=== PATIENT | female | born 1985 | race American Indian/Alaskan Native ===

== ENCOUNTER 2018-10-14 16:57 | Inpatient (IN) | payer MEDICAID ==
[2018-10-14 18:57] LABS: HCG Qualitative,Urine Negative (Negative)
[2018-10-14 18:59] LABS: Bilirubin,Urine NEG (Negative); Blood,Urine NEG (Negative); Color,Urine Yellow (Yellow); Mucus,Urine 3+ /HPF; Protein,Urine <15 mg/dL mg/dL (Negative)
[2018-10-14 19:00] LABS: Urobilinogen,Urine < 2.0 mg/dL (<2.0)
[2018-10-14] MEDS ORDERED: NACL 0.9% 1000 ML 1,000 ML IV ONE (21:52)
[2018-10-14] MEDS ORDERED: DILAUDID IV ONE (21:52)
--- NOTE | 2018-10-14 22:01 | Emergency Department Report ---
ED Abdominal Pain HPI - General Chief Complaint: Abdominal Pain Stated Complaint: CHEST/ABD/BACK PAIN Time Seen by Provider: 10/14/18 21:51 Source: patient Mode of arrival: Ambulatory Limitations: No Limitations - History of Present Illness Initial Comments: Patient is a 33-year-old female who presents to emergency room with complaints of chest pain 1 day and abdominal pain and lower back pain 3 weeks. Patient states that her back pain and abdominal pain are worsening. Patient states her chest pain is better with rest and worse with deep breath. Patient denies fever and chills and cough. Patient states her abdominal pain is right lower quadrant and is better with rest and is worse with palpation and movement. Patient denies nausea vomiting. Patient denies vaginal discharge. Patient denies vaginal bleeding. Patient complains of diarrhea. MD Complaint: abdominal pain -: Sudden - Related Data Allergies Allergy/AdvReac Type Severity Reaction Status Date / Time No Known Allergies Allergy Verified 10/14/18 17:24 ED Review of Systems ROS: Stated complaint: CHEST/ABD/BACK PAIN Other details as noted in HPI Constitutional: denies: chills, fever Eyes: denies: eye pain, eye discharge, vision change ENT: denies: ear pain, throat pain Respiratory: denies: cough, shortness of breath, wheezing Cardiovascular: chest pain. denies: palpitations Endocrine: no symptoms reported Gastrointestinal: abdominal pain. denies: nausea, diarrhea Genitourinary: denies: urgency, dysuria, discharge Musculoskeletal: denies: back pain, joint swelling, arthralgia Skin: denies: rash, lesions Neurological: denies: headache, weakness, paresthesias Psychiatric: denies: anxiety, depression Hematological/Lymphatic: denies: easy bleeding, easy bruising ED Past Medical Hx - Past Medical History Previous Medical History?: Yes Additional medical history: chronic back pain, herniated disc - Surgical History Past Surgical History?: Yes Additional Surgical History: x 2 - Family History Family history: no significant - Social History Smoking Status: Former Smoker Substance Use Type: Alcohol ED Physical Exam - General Limitations: No Limitations General appearance: alert, in no apparent distress - Head Head exam: Present: atraumatic, normocephalic - Eye Eye exam: Present: normal appearance - ENT ENT exam: Present: mucous membranes moist - Neck Neck exam: Present: normal inspection - Respiratory Respiratory exam: Present: normal lung sounds bilaterally. Absent: respiratory distress - Cardiovascular Cardiovascular Exam: Present: regular rate, normal rhythm. Absent: systolic murmur, diastolic murmur, rubs, gallop - GI/Abdominal GI/Abdominal exam: Present: soft, tenderness (left lower quadrant tenderness and left flank tenderness), normal bowel sounds - Extremities Exam Extremities exam: Present: normal inspection - Back Exam Back exam: Present: normal inspection - Neurological Exam Neurological exam: Present: alert, oriented X3 - Psychiatric Psychiatric exam: Present: normal affect, normal mood - Skin Skin exam: Present: warm, dry, intact, normal color. Absent: rash ED Course Vital Signs 10/14/18 10/15/18 10/15/18 17:19 00:00 00:16 Temperature 98.2 F Pulse Rate 110 H 87 81 Respiratory 20 12 13 Rate Blood Pressure 111/69 126/81 O2 Sat by Pulse 99 98 Oximetry 10/15/18 10/15/18 10/15/18 00:30 00:46 01:28 Temperature Pulse Rate 89 88 93 H Respiratory 15 13 27 H Rate Blood Pressure 126/81 126/81 126/81 O2 Sat by Pulse 98 99 99 Oximetry 10/15/18 10/15/18 10/15/18 01:30 01:46 02:00 Temperature Pulse Rate 82 83 86 Respiratory 18 17 15 Rate Blood Pressure 126/81 126/81 126/81 O2 Sat by Pulse 95 97 99 Oximetry 10/15/18 10/15/18 10/15/18 02:16 02:30 02:46 Temperature Pulse Rate 82 81 82 Respiratory 19 14 16 Rate Blood Pressure 126/81 126/81 126/81 O2 Sat by Pulse 97 97 96 Oximetry 10/15/18 10/15/18 10/15/18 03:00 03:16 03:30 Temperature Pulse Rate 78 82 85 Respiratory 14 15 16 Rate Blood Pressure 114/65 114/65 114/65 O2 Sat by Pulse 98 97 97 Oximetry 10/15/18 10/15/18 10/15/18 03:46 04:00 04:16 Temperature Pulse Rate 82 77 100 H Respiratory 15 12 18 Rate Blood Pressure 114/65 111/69 111/69 O2 Sat by Pulse 97 99 99 Oximetry 10/15/18 10/15/18 10/15/18 04:30 04:46 05:00 Temperature Pulse Rate 79 73 85 Respiratory 15 13 12 Rate Blood Pressure 111/69 111/69 117/73 O2 Sat by Pulse 96 97 97 Oximetry 10/15/18 10/15/18 10/15/18 05:16 05:30 05:46 Temperature Pulse Rate 82 89 89 Respiratory 14 11 L 12 Rate Blood Pressure 117/73 117/73 117/73 O2 Sat by Pulse 96 96 96 Oximetry - Reevaluation(s) Reevaluation #1: Chest all results with patient. Discussed plan of care with patient. Patient admitted to the hospitalist service. 10/15/18 03:09 Is complaining of pain. Patient to get another dose of Dilaudid. 10/15/18 03:52 - Consultations Consultation #1: Hospitalist paged 10/15/18 02:30 Hospitalist hospitalist to admit patient. Hospitalist consulted 10/15/18 03:43 ED Medical Decision Making - Lab Data Result diagrams: 10/14/18 22:22 10/14/18 23:41 - EKG Data -: EKG Interpreted by Ok EKG shows normal: sinus rhythm, axis, intervals, QRS complexes, ST-T waves Rate: normal - Radiology Data Radiology results: report reviewed FINAL REPORT PROCEDURE: CT ABDOMEN PELVIS W CON TECHNIQUE: Computerized axial tomography of the abdomen and pelvis was performed after the IV injection of iodinated nonionic contrast. HISTORY: rt lq abd pain. rt flank pain. back pain COMPARISON: No prior studies are available for comparison. FINDINGS: Visualized lower thorax: No significant abnormality. Liver: Normal size and attenuation. Spleen: Normal size and attenuation. Gallbladder and biliary system: Normal. Pancreas: Normal. Adrenals: Normal. Kidneys: Normal. GI tract: There is no bowel obstruction, colitis or enteritis. The appendix is normal.. Lymph nodes and mesentery: Normal. Vasculature: Normal. Bladder: Normal. Reproductive organs: Uterus and ovaries are unremarkable. Peritoneum: There is no ascites or free air, abscess or adenopathy.. Musculoskeletal structures: No significant abnormality. Other: None. IMPRESSION: There is no bowel obstruction, colitis or enteritis. The appendix is normal.. Uterus and ovaries are unremarkable. There is no ascites or free air, abscess or adenopathy.. Transcribed By: CO Dictated By: LONI VANCE MD Electronically Authenticated By: LONI VANCE MD Signed Date/Time: 10/15/18 0156 - Medical Decision Making Patient is a 33-year-old female that presents to emergency with multiple complaints. Patient complained of chest pain and right lower quadrant abdominal pain. Abdominal CT was negative. Patient admitted to the hospitalist service to rule out ACS. Labs essentially unremarkable. Initial cardiac workup negative. EKG normal. - Differential Diagnosis chest pain. ACS. Abdominal pain. Appendicitis. Critical care attestation.: If time is entered above; I have spent that time in minutes in the direct care of this critically ill patient, excluding procedure time. ED Disposition Clinical Impression: Chest pain Qualifiers: Chest pain type: unspecified Qualified Code(s): R07.9 - Chest pain, unspecified Abdominal pain Qualifiers: Abdominal location: right lower quadrant Qualified Code(s): R10.31 - Right lower quadrant pain Disposition: DC-09 OP ADMIT IP TO THIS HOSP Is pt being admited?: Yes Does the pt Need Aspirin: No Condition: Serious Time of Disposition: 03:52
--- NOTE | 2018-10-14 22:40 | XRay Report ---
FINAL REPORT EXAM: XR CHEST 1V AP HISTORY: cp TECHNIQUE: AP portable view of the chest. PRIORS: None. FINDINGS: The cardiomediastinal silhouette appears normal. The lungs are clear. The bones and soft tissues are unremarkable. IMPRESSION: No evidence of acute cardiopulmonary disease.
[2018-10-14 22:50] LABS: Basophils # (Auto) 0.1 K/mm3 (0.0-0.1); Basophils % (Auto) 1.3 % (0.0-1.8); Eosinophils # (Auto) 0.1 K/mm3 (0.0-0.4); Hematocrit 39.4 % (30.3-42.9); Hemoglobin 12.6 gm/dl (10.1-14.3); Lymphocytes # (Auto) 2.9 K/mm3 (1.2-5.4); Lymphocytes % (Auto) 27.8 % (13.4-35.0); Mean Corpuscular HGB Conc 32 % (30-34); Mean Corpuscular Volume 75 fl (79-97); Monocytes # (Auto) 0.6 K/mm3 (0.0-0.8); Monocytes % (Auto) 5.4 % (0.0-7.3); Platelet Count 239 K/mm3 (140-440); Red Blood Count 5.29 M/mm3 (3.65-5.03); Red Cell Distribution Width 15.3 % (13.2-15.2)
[2018-10-15 00:10] LABS: Albumin 4.4 g/dL (3.9-5); BUN/Creatinine Ratio 20; Blood Urea Nitrogen 10 mg/dL (7-17); Calcium 9.8 mg/dL (8.4-10.2); Hemolysis Index 311
[2018-10-15 00:14] LABS: Alanine Aminotransferase 15 units/L (7-56)
--- NOTE | 2018-10-15 01:56 | Cat Scan Report ---
FINAL REPORT PROCEDURE: CT ABDOMEN PELVIS W CON TECHNIQUE: Computerized axial tomography of the abdomen and pelvis was performed after the IV inject ion of iodinated nonionic contrast. HISTORY: rt lq abd pain. rt flank pain. back pain COMPARISON: No prior studies are available for comparison. FINDINGS: Visualized lower thorax: No significant abnormality. Liver: Normal size and attenuation. Spleen: Normal size and attenuation. Gallbladder and biliary system: Normal. Pancreas: Normal. Adrenals: Normal. Kidneys: Normal. GI tract: There is no bowel obstruction, colitis or enteritis. The appendix is normal.. Lymph nodes and mesentery: Normal. Vasculature: Normal. Bladder: Normal. Reproductive organs: Uterus and ovaries are unremarkable. Peritoneum: There is no ascites or free air, abscess or adenopathy.. Musculoskeletal structures: No significant abnormality. Other: None. IMPRESSION: There is no bowel obstruction, colitis or enteritis. The appendix is normal.. Uterus and ovaries are unremarkable. There is no ascites or free air, abscess or adenopathy..
[2018-10-15] MEDS ORDERED: DILAUDID IV ONE (04:08)
[2018-10-15 08:07] LABS: Creatine Kinase MB < 1.0 ng/mL (0.0-4.0)
[2018-10-15] MEDS ORDERED: MORPHINE IV PRN (08:24)
[2018-10-15] MEDS ORDERED: NARCAN 0.4 MG/1 ML IV PRN (08:24)
[2018-10-15] MEDS ORDERED: PROVENTIL IH PRN (08:24)
[2018-10-15] MEDS ORDERED: ZOFRAN IV PRN (08:24)
[2018-10-15] MEDS ORDERED: SODIUM CHLORIDE FLUSH SYRINGE 10 ML IV PRN ×2 (08:24)
[2018-10-15] MEDS ORDERED: TYLENOL PO PRN (08:24)
[2018-10-15] MEDS ORDERED: DULCOLAX PR PRN (08:24)
[2018-10-15] MEDS ORDERED: ALUM-MAG HYDROX-SIMETH 200-200-20MG/5ML PO PRN (08:24)
[2018-10-15] MEDS ORDERED: HEMORRHOIDAL 0.25/3/85.5% PR PRN (08:26)
[2018-10-15] MEDS ORDERED: TORADOL IV ONE (08:27)
--- NOTE | 2018-10-15 08:33 | History and Physical Report ---
History of Present Illness Date of examination: 10/15/18 Date of admission: 10/15/18 Chief complaint: abdominal pain, chest pain , lower back pain History of present illness: Patient is a 33-year-old female with past medical history of chronic low back pain secondary to slip fall incident in 2008 with noted slipped disc. Also history of extensive tobacco use and quit about a year ago presents to the ED with complaints of abdominal pain bilateral lower lobe cycle related to started about 3 weeks ago and has persisted with associated chest about a day or go pleu ritic in nature prompted her presentation to the ED. She also reports history of hemorrhoids which she felt a pop in the recent days. But not providing any discomfort not associated stool or melanotic diarrhea. She reports that she is scheduled to see a GI doctor next week. She denies any dysuria or vaginal discharge. On arrival to the ER she knows the chest pain since 7/10 in intensity and abdominal pain as 4/10 intensity chest pain is aggravated by movement or deep is duration. Abdominal pain is aggravated by pressure to the site. She denies any suprapubic tenderness at this time. Fever nausea or vomiting. She was now she has this chronic back pain which has been aggravated with the onset of this abdominal pain and chest pain. Past History Past Medical History: other (chronic back pain with slipped disc) Past Surgical History: Other ( 2) Social history: smoking (eX Tobacco user) Family history: no significant family history Medications and Allergies Allergies Allergy/AdvReac Type Severity Reaction Status Date / Time No Known Allergies Allergy Verified 10/15/18 08:29 Home Medications Medication Instructions Recorded Confirmed Last Taken Type No Known Home Medications [No 10/15/18 10/15/18 Unknown History Reported Home Medications] Review of Systems All systems: negative Cardiovascular: chest pain (pleuritic in nature), no shortness of breath Respiratory: no cough, no cough with sputum, no excessive sputum, no shortness of breath, no dyspnea on exertion Gastrointestinal: abdominal pain, no change in bowel habits Exam - Physical Exam Narrative exam: VITAL SIGNS: Reviewed. GENERAL: The patient appeared well nourished and normally developed. Vital signs as documented. HEAD: No signs of head trauma. EYES: Pupils are equal. Extraocular motions intact. EARS: Hearing grossly intact. MOUTH: Oropharynx is normal. NECK: No adenopathy, no JVD. CHEST: Chest with clear breath sounds bilaterally. No wheezes, rales, or rhonchi. CARDIAC: Regular rate and rhythm. S1 and S2, without murmurs, gallops, or rubs. VASCULAR: No Edema. Peripheral pulses normal and equal in all extremities. ABDOMEN: Soft, pressure-like sensation most tenderness per se. No sign of distention. No rebound or guarding, and no masses palpated. Bowel Sounds normal. MUSCULOSKELETAL: Good range of motion of all major joints. Extremities without clubbing, cyanosis or edema. NEUROLOGIC EXAM: Alert and oriented x 3. No focal sensory or strength deficits. Speech normal. Follows commands. PSYCHIATRIC: Mood normal. SKIN: No rash or lesions. - Constitutional Vitals: Temp Pulse Resp BP Pulse Ox 97 F L 74 14 120/67 100 10/15/18 07:12 10/15/18 07:12 10/15/18 07:12 10/15/18 07:12 10/15/18 07:12 Results - Labs CBC & Chem 7: 10/16/18 05:32 10/16/18 05:32 Labs: Laboratory Last Values WBC 10.6 K/mm3 (4.5-11.0) 10/14/18 22:22 RBC 5.29 M/mm3 (3.65-5.03) H 10/14/18 22:22 Hgb 12.6 gm/dl (10.1-14.3) 10/14/18 22:22 Hct 39.4 % (30.3-42.9) 10/14/18 22:22 MCV 75 fl (79-97) L 10/14/18 22:22 MCH 24 pg (28-32) L 10/14/18 22:22 MCHC 32 % (30-34) 10/14/18 22:22 RDW 15.3 % (13.2-15.2) H 10/14/18 22:22 Plt Count 239 K/mm3 (140-440) 10/14/18 22:22 Lymph % (Auto) 27.8 % (13.4-35.0) 10/14/18 22:22 [place] % (Auto) 5.4 % (0.0-7.3) 10/14/18 22:22 Eos % (Auto) 1.0 % (0.0-4.3) 10/14/18 22:22 Baso % (Auto) 1.3 % (0.0-1.8) 10/14/18 22:22 Lymph # 2.9 K/mm3 (1.2-5.4) 10/14/18 22:22 [place] # 0.6 K/mm3 (0.0-0.8) 10/14/18 22:22 Eos # 0.1 K/mm3 (0.0-0.4) 10/14/18 22:22 Baso # 0.1 K/mm3 (0.0-0.1) 10/14/18 22:22 Seg Neutrophils % 64.5 % (40.0-70.0) 10/14/18 22:22 Seg Neutrophils # 6.8 K/mm3 (1.8-7.7) 10/14/18 22:22 D-Dimer 237.81 ng/mlDDU (0-234) H 10/15/18 06:54 Sodium 136 mmol/L (137-145) L 10/14/18 23:41 Potassium 4.4 mmol/L (3.6-5.0) 10/14/18 23:41 Chloride 97.3 mmol/L (98-107) L 10/14/18 23:41 Carbon Dioxide 23 mmol/L (22-30) 10/14/18 23:41 Anion Gap 20 mmol/L 10/14/18 23:41 BUN 10 mg/dL (7-17) 10/14/18 23:41 Creatinine 0.5 mg/dL (0.7-1.2) L 10/14/18 23:41 Estimated GFR > 60 ml/min 10/14/18 23:41 BUN/Creatinine Ratio 20 % 10/14/18 23:41 Glucose 84 mg/dL (65-100) 10/14/18 23:41 Lactic Acid 1.30 mmol/L (0.7-2.0) 10/14/18 22:22 Calcium 9.8 mg/dL (8.4-10.2) 10/14/18 23:41 Total Bilirubin 0.70 mg/dL (0.1-1.2) 10/14/18 23:41 AST 31 units/L (5-40) 10/14/18 23:41 ALT 15 units/L (7-56) 10/14/18 23:41 Alkaline Phosphatase 69 units/L (35-129) 10/14/18 23:41 Total Creatine Kinase 93 units/L (30-135) 10/15/18 06:54 CK-MB (CK-2) < 1.0 ng/mL (0.0-4.0) 10/15/18 06:54 CK-MB (CK-2) Rel Index 1.0 (0-4) 10/15/18 06:54 Troponin T < 0.010 ng/mL (0.00-0.029) 10/15/18 06:54 Total Protein 7.3 g/dL (6.3-8.2) 10/14/18 23:41 Albumin 4.4 g/dL (3.9-5) 10/14/18 23:41 Albumin/Globulin Ratio 1.5 % 10/14/18 23:41 Lipase 35 units/L (13-60) 10/14/18 22:22 Urine Color Yellow (Yellow) 10/14/18 18:30 Urine Turbidity Clear (Clear) 10/14/18 18:30 Urine pH 6.0 (5.0-7.0) 10/14/18 18:30 Ur Specific [place] 1.019 (1.003-1.030) 10/14/18 18:30 Urine Protein <15 mg/dl mg/dL (Negative) 10/14/18 18:30 Urine Glucose (UA) Neg mg/dL (Negative) 10/14/18 18:30 Urine Ketones Tr mg/dL (Negative) 10/14/18 18:30 Urine Blood Neg (Negative) 10/14/18 18:30 Urine Nitrite Neg (Negative) 10/14/18 18:30 Ur Reducing Substances Not Reportable 10/14/18 18:30 Urine Bilirubin Neg (Negative) 10/14/18 18:30 Urine Ictotest Not Reportable 10/14/18 18:30 Urine Urobilinogen < 2.0 mg/dL (<2.0) 10/14/18 18:30 Ur Leukocyte Esterase Neg (Negative) 10/14/18 18:30 Urine WBC (Auto) 1.0 /HPF (0.0-6.0) 10/14/18 18:30 Urine RBC (Auto) 1.0 /HPF (0.0-6.0) 10/14/18 18:30 U Epithel Cells (Auto) 1.0 /HPF (0-13.0) 10/14/18 18:30 Urine Mucus 3+ /HPF 10/14/18 18:30 Urine HCG, Qual Negative (Negative) 10/14/18 18:30 - Imaging and Cardiology CT scan - abdomen: image reviewed (no acute pathology) Assessment and Plan Assessment and plan: Patient is a 33-year-old female with past medical history of chronic low back pain secondary to slip fall incident in 2008 with noted slipped disc. Also history of extensive tobacco use and quit about a year ago presents to the ED with complaints of abdominal pain bilateral lower lobe cycle related to started about 3 weeks ago and has persisted with associated chest about a day or go pleuritic in nature prompted her presentation to the ED. She also reports history of hemorrhoids which she felt a pop in the recent days. But not providing any discomfort not associated stool or melanotic diarrhea. She reports that she is scheduled to see a GI doctor next week. She denies any dysuria or vaginal discharge. On arrival to the ER she knows the chest pain since 7/10 in intensity and abdominal pain as 4/10 intensity chest pain is aggravated by movement or deep is duration. Abdominal pain is aggravated by pressure to the site. She denies any suprapubic tenderness at this time. Fever nausea or vomiting. She was now she has this chronic back pain which has been aggravated with the onset of this abdominal pain and chest Pleuritic chest pain with some reproducible component x1 day B/L lower abdominal pain- non cycle related- period ended 3 days ago- x 3 weeks Acute chronic lower back pain from prior slip and fall accident in 2008- Known slip disc Obesity Ex-smoker quit 1 year ago Elevated D.dimer Hemorrhiods Plan Admit to Telemetry Chest pain protocol Pain control Stress test Toradol for presumed musculosketal pain GI eval considering duration and not tolerating Diet in the last 4 days Heating PAD. May need outpt PT for chronic back pain. Weightloss counselling Rule out VTE-CHEST AND LOWER EXT dvt/gi prophy Plan discussed with the patient. Advance Directives: Yes Plan of care discussed with patient/family: Yes
[2018-10-15] MEDS ORDERED: LEXISCAN IV ONE ×2 (08:39→08:40)
--- NOTE | 2018-10-15 13:15 | Treadmill Report ---
IV LEXISCAN NUCLEAR IMAGING REPORT This is being done on a 33-year-old female with complaints of chest pain. Baseline EKG showed sinus rhythm and is within normal limits. The patient received IV Lexiscan without any significant side effects. No significant EKG changes were noted to suggest ischemia. The patient received a of technetium-tetrofosmin during rest and resting perfusion images were obtained followed after vasodilation with IV Lexiscan with a post-vasodilation images using of technetium-tetrofosmin 32.87 mCi. Stress gated images were obtained. Review of the resting and stress images showed small mild apical defect, which appears to be more or less fixed, noted both in the resting and stress images. Otherwise, no significant perfusion defects were noted during stress or rest. Gated studies showed normal sized left ventricle with normal wall thickening and contractility. Calculated ejection fraction was 66%. Transient ischemic dilation ratio was found to be 0.98. FINAL IMPRESSION: 1. The patient tolerated IV Lexiscan well. 2. No EKG changes or symptoms during IV Lexiscan injection. 3. Myocardial perfusion images did not show any evidence of significant reversible defects to suggest ischemia. Fixed apical defect was noted. 4. Normal left ventricular systolic function with a calculated ejection fraction of 66% noted. JOB# [id number] LINCOLN/BETHEL
[2018-10-15] MEDS: SODIUM CHLORIDE FLUSH SYRINGE 10 ML IV SCH ×2 (13:16→22:34)
[2018-10-15 14:03] LABS: Basophils # (Auto) 0.1 K/mm3 (0.0-0.1); Basophils % (Auto) 0.8 % (0.0-1.8); Eosinophils # (Auto) 0.1 K/mm3 (0.0-0.4); Eosinophils % (Auto) 1.1 % (0.0-4.3); Hematocrit 37.6 % (30.3-42.9); Hemoglobin 12.3 gm/dl (10.1-14.3); Lymphocytes # (Auto) 1.5 K/mm3 (1.2-5.4); Lymphocytes % (Auto) 20.6 % (13.4-35.0); Mean Corpuscular HGB Conc 33 % (30-34); Mean Corpuscular Volume 74 fl (79-97); Monocytes # (Auto) 0.4 K/mm3 (0.0-0.8); Monocytes % (Auto) 5.4 % (0.0-7.3); Platelet Count 219 K/mm3 (140-440); Red Blood Count 5.06 M/mm3 (3.65-5.03); Red Cell Distribution Width 15.3 % (13.2-15.2)
[2018-10-15 14:18] LABS: BUN/Creatinine Ratio 12; Blood Urea Nitrogen 7 mg/dL (7-17); Calcium 9.5 mg/dL (8.4-10.2); Hemolysis Index 0
[2018-10-15] MEDS: HEPARIN SUB-Q SCH ×2 (14:20→22:33)
[2018-10-15] MEDS ORDERED: HEPARIN ONE (14:21)
[2018-10-15 14:45] LABS: Creatine Kinase MB < 1.0 ng/mL (0.0-4.0)
--- NOTE | 2018-10-15 18:41 | Gastroenterology Consultation ---
History of Present Illness - Reason for Consult Consult date: 10/15/18 abdominal pain - History of Present Illness This is a 33 yo AAF with pmh of lower back pain due to fall accident and hemorr hoids admitted for lower abdominal pain and chest pain. GI consulted for evaluation of lower abdominal pain. Patient reports having pain in the right lower abdomen radiating to her left abdomen constantly for the past 3 weeks along with chest pain. Reports these symptoms started after her hemorrhoids "popped". She had two episodes of diarrhea last week and had no stools for about 3 days during which time she had worsening lower abdominal pain. This week, she had normal stools without any blood in the stool or melena until today, she had loose stool x 1. Denies any nausea/vomiting. Today, she had cardiac stress test and received pain medication. Currently, her abdominal pain has improved and was able to tolerate diet this afternoon. Past History Past Medical History: other (lower back pain) Social history: lives with family Medications and Allergies Allergies Allergy/AdvReac Type Severity Reaction Status Date / Time No Known Allergies Allergy Verified 10/15/18 08:29 Home Medications Medication Instructions Recorded Confirmed Last Taken Type No Known Home Medications [No 10/15/18 10/15/18 Unknown History Reported Home Medications] Active Meds: Active Medications Acetaminophen (Tylenol) 650 mg PO Q4H PRN PRN Reason: Pain MILD(1-3)/Fever >100.5/[place] Al Hydrox/Mg Hydrox/Simethicone (Alum-Mag Hydrox-Simeth [phone]/5ml) 30 ml PO Q4H PRN PRN Reason: Indigestion Albuterol (Proventil) 2.5 mg IH Q3HRT PRN PRN Reason: Shortness Of Breath Bisacodyl (Dulcolax) 10 mg NC QDAY PRN PRN Reason: Constipation unrelieved by MOM Heparin Sodium (Porcine) (Heparin) 5,000 unit SUB-Q Q8HR YESSENIA Last Admin: 10/15/18 14:20 Dose: 5,000 unit Documented by: Morphine Sulfate (Morphine) 2 mg IV Q4H PRN PRN Reason: Pain, Moderate (4-6) Naloxone HCl (Narcan 0.4 Mg/1 Ml) 0.1 mg IV Q2MIN PRN PRN Reason: Res Rate </= 8 or 02 SAT < 92% Ondansetron HCl (Zofran) 4 mg IV Q8H PRN PRN Reason: Nausea And Vomiting Phenyleph/Shark Oil/[place] Butter (Hemorrhoidal 0.25/3/85.5%) 1 each NC QHS PRN PRN Reason: Hemorrhoids Sodium Chloride (Sodium Chloride Flush Syringe 10 Ml) 10 ml IV BID YESSENIA Last Admin: 10/15/18 13:16 Dose: 10 ml Documented by: Sodium Chloride (Sodium Chloride Flush Syringe 10 Ml) 10 ml IV PRN PRN PRN Reason: LINE FLUSH Review of Systems - Review of Systems Constitutional: no weight loss, no weight gain Cardiovascular: chest pain Gastrointestinal: abdominal pain, diarrhea, constipation, change in bowel habits, no nausea, no vomiting, no hematemesis, no BRBPR, no melena Musculoskeletal: joint pain Exam - Constitutional Vital Signs: Temp Pulse Resp BP Pulse Ox 98.2 F 86 16 113/69 97 10/15/18 15:43 10/15/18 15:43 10/15/18 15:43 10/15/18 15:43 10/15/18 15:43 General appearance: no acute distress - EENT Eyes: PERRL, EOM intact - Neck Neck: supple, normal ROM - Respiratory Respiratory effort: normal Respiratory: bilateral: CTA - Cardiovascular Rhythm: regular Heart Sounds: Present: S1 & S2 - Gastrointestinal General gastrointestinal: Present: soft, non-tender, non-distended, normal bowel sounds - Integumentary Integumentary: Present: clear, warm - Neurologic Neurological: alert and oriented x3 - Psychiatric Psychiatric: appropriate mood/affect - Labs CBC & Chem 7: 10/15/18 13:46 10/15/18 13:46 Lab Results: Laboratory Results - last 24 hr 10/14/18 10/14/18 10/14/18 18:30 22:22 22:22 WBC 10.6 RBC 5.29 H Hgb 12.6 Hct 39.4 MCV 75 L MCH 24 L MCHC 32 RDW 15.3 H Plt Count 239 Lymph % (Auto) 27.8 [place] % (Auto) 5.4 Eos % (Auto) 1.0 Baso % (Auto) 1.3 Lymph # 2.9 [place] # 0.6 Eos # 0.1 Baso # 0.1 Seg Neutrophils % 64.5 Seg Neutrophils # 6.8 D-Dimer Sodium Potassium Chloride Carbon Dioxide Anion Gap BUN Creatinine Estimated GFR BUN/Creatinine Ratio Glucose Lactic Acid Calcium Total Bilirubin AST ALT Alkaline Phosphatase Total Creatine Kinase CK-MB (CK-2) CK-MB (CK-2) Rel Index Troponin T Total Protein Albumin Albumin/Globulin Ratio Lipase 35 Urine Color Yellow Urine Turbidity Clear Urine pH 6.0 Ur Specific [place] 1.019 Urine Protein <15 mg/dl Urine Glucose (UA) Neg Urine Ketones Tr Urine Blood Neg Urine Nitrite Neg Ur Reducing Substances Not Reportable Urine Bilirubin Neg Urine Ictotest Not Reportable Urine Urobilinogen < 2.0 Ur Leukocyte Esterase Neg Urine WBC (Auto) 1.0 Urine RBC (Auto) 1.0 U Epithel Cells (Auto) 1.0 Urine Mucus 3+ Urine HCG, Qual Negative 10/14/18 10/14/18 10/15/18 22:22 23:41 06:54 WBC RBC Hgb Hct MCV MCH MCHC RDW Plt Count Lymph % (Auto) [place] % (Auto) Eos % (Auto) Baso % (Auto) Lymph # [place] # Eos # Baso # Seg Neutrophils % Seg Neutrophils # D-Dimer Sodium 136 L Potassium 4.4 Chloride 97.3 L Carbon Dioxide 23 Anion Gap 20 BUN 10 Creatinine 0.5 L Estimated GFR > 60 BUN/Creatinine Ratio 20 Glucose 84 Lactic Acid 1.30 Calcium 9.8 Total Bilirubin 0.70 AST 31 ALT 15 Alkaline Phosphatase 69 Total Creatine Kinase 140 H 93 CK-MB (CK-2) 1.0 < 1.0 CK-MB (CK-2) Rel Index 0.7 1.0 Troponin T < 0.010 < 0.010 Total Protein 7.3 Albumin 4.4 Albumin/Globulin Ratio 1.5 Lipase Urine Color Urine Turbidity Urine pH Ur Specific [place] Urine Protein Urine Glucose (UA) Urine Ketones Urine Blood Urine Nitrite Ur Reducing Substances Urine Bilirubin Urine Ictotest Urine Urobilinogen Ur Leukocyte Esterase Urine WBC (Auto) Urine RBC (Auto) U Epithel Cells (Auto) Urine Mucus Urine HCG, Qual 10/15/18 10/15/18 10/15/18 06:54 13:46 13:46 WBC 7.5 RBC 5.06 H Hgb 12.3 Hct 37.6 MCV 74 L MCH 24 L MCHC 33 RDW 15.3 H Plt Count 219 Lymph % (Auto) 20.6 [place] % (Auto) 5.4 Eos % (Auto) 1.1 Baso % (Auto) 0.8 Lymph # 1.5 [place] # 0.4 Eos # 0.1 Baso # 0.1 Seg Neutrophils % 72.1 H Seg Neutrophils # 5.4 D-Dimer 237.81 H Sodium Potassium Chloride Carbon Dioxide Anion Gap BUN Creatinine Estimated GFR BUN/Creatinine Ratio Glucose Lactic Acid Calcium Total Bilirubin AST ALT Alkaline Phosphatase Total Creatine Kinase 84 CK-MB (CK-2) < 1.0 CK-MB (CK-2) Rel Index 1.1 Troponin T < 0.010 Total Protein Albumin Albumin/Globulin Ratio Lipase Urine Color Urine Turbidity Urine pH Ur Specific [place] Urine Protein Urine Glucose (UA) Urine Ketones Urine Blood Urine Nitrite Ur Reducing Substances Urine Bilirubin Urine Ictotest Urine Urobilinogen Ur Leukocyte Esterase Urine WBC (Auto) Urine RBC (Auto) U Epithel Cells (Auto) Urine Mucus Urine HCG, Qual 10/15/18 13:46 WBC RBC Hgb Hct MCV MCH MCHC RDW Plt Count Lymph % (Auto) [place] % (Auto) Eos % (Auto) Baso % (Auto) Lymph # [place] # Eos # Baso # Seg Neutrophils % Seg Neutrophils # D-Dimer Sodium 142 Potassium 3.7 Chloride 103.5 Carbon Dioxide 28 Anion Gap 14 BUN 7 Creatinine 0.6 L Estimated GFR > 60 BUN/Creatinine Ratio 12 Glucose 102 H Lactic Acid Calcium 9.5 Total Bilirubin AST ALT Alkaline Phosphatase Total Creatine Kinase CK-MB (CK-2) CK-MB (CK-2) Rel Index Troponin T Total Protein Albumin Albumin/Globulin Ratio Lipase Urine Color Urine Turbidity Urine pH Ur Specific [place] Urine Protein Urine Glucose (UA) Urine Ketones Urine Blood Urine Nitrite Ur Reducing Substances Urine Bilirubin Urine Ictotest Urine Urobilinogen Ur Leukocyte Esterase Urine WBC (Auto) Urine RBC (Auto) U Epithel Cells (Auto) Urine Mucus Urine HCG, Qual - Imaging CT Scan: report reviewed Assessment and Plan This is a 33 yo AAF with pmh of lower back pain due to fall accident and hemorrhoids admitted for lower abdominal pain and chest pain. GI consulted for evaluation of lower abdominal pain. - Patient Problems (1) Abdominal pain Current Visit: Yes Status: Acute Qualifiers: Abdominal location: right lower quadrant Qualified Code(s): R10.31 - Right lower quadrant pain Plan to address problem: - on-going for the past 3 week, associated with change in bowel habits and hemorrhoids. - CT abdomen/pelvis negative - labs unremarkable - pain now much improved and benign abdominal exam this afternoon. - unclear etiology for the pain, may be related to IBS, visceral hypersensitivity, musculoskeletal, vs referred pain from lower back pain. Rec - conservative management - patient has an outpatient GI clinic appt next Wednesday and can follow up outpatient as scheduled for further work up if pain is persistent. Currently p atient reports abdominal pain is resolved. - will sign off at this time. Please call with questions.
[2018-10-16] MEDS ORDERED: MORPHINE IV PRN (04:00)
[2018-10-16] MEDS: HEPARIN SUB-Q SCH (05:27)
[2018-10-16 06:27] LABS: Basophils % (Auto) 0.5 % (0.0-1.8); Eosinophils # (Auto) 0.2 K/mm3 (0.0-0.4); Eosinophils % (Auto) 2.3 % (0.0-4.3); Hematocrit 38.6 % (30.3-42.9); Lymphocytes # (Auto) 2.5 K/mm3 (1.2-5.4); Lymphocytes % (Auto) 34.8 % (13.4-35.0); Mean Corpuscular HGB Conc 31 % (30-34); Mean Corpuscular Volume 76 fl (79-97); Monocytes # (Auto) 0.5 K/mm3 (0.0-0.8); Monocytes % (Auto) 6.9 % (0.0-7.3); Platelet Count 200 K/mm3 (140-440); Red Blood Count 5.07 M/mm3 (3.65-5.03); Red Cell Distribution Width 15.4 % (13.2-15.2)
[2018-10-16 06:34] LABS: BUN/Creatinine Ratio 15; Blood Urea Nitrogen 9 mg/dL (7-17); Hemolysis Index 5
[2018-10-16 08:45] VITALS: BP 104/56
[2018-10-16] MEDS: SODIUM CHLORIDE FLUSH SYRINGE 10 ML IV SCH (09:46)
--- NOTE | 2018-10-16 09:51 | Cat Scan Report ---
FINAL REPORT EXAM: CT ANGIO CHEST HISTORY: CP, EVAL FOR PE. USED 100 ML OMNI 350. TECHNIQUE: CT angiography of the chest was performed. 100 cc Omnipaque 350 IV contrast was administe red. Axial images and coronal and sagittal reformatted images were obtained. PRIORS: None. FINDINGS: There is no aortic dissection seen. There is no significant mediastinal or hilar mass seen. There are no filling defects seen within the pulmonary arterial circulation to suggest pulmonary embo lism. There are no pleural effusions seen. The lungs are clear. There is no pneumothorax seen. IMPRESSION: There is no pulmonary embolism or aortic dissection seen.
--- NOTE | 2018-10-16 12:37 | Discharge Summary ---
Providers - Providers Date of Admission: 10/15/18 05:55 Attending physician: ESMER REES MD 10/15/18 Consult to Cardiac Rehabilitation [CONS] Routine Reason For Exam: Phase I 10/15/18 08:24 Consult to Physician [CONS] Routine Comment: A/S NOTIFIED [id number] Consulting Provider: BUSHRA BENNETT Physician Instructions: Reason For Exam: abdominal pain Primary care physician: [employer] Hospitalization Reason for admission: chest pain Condition: Stable Hospital course: Patient is a 33-year-old female with past medical history of chronic low back pain secondary to slip fall incident in 2008 with noted slipped disc. Also history of extensive tobacco use and quit about a year ago presents to the ED with complaints of abdominal pain bilateral lower lobe cycle related to started about 3 weeks ago and has persisted with associated chest about a day or go pleuritic in nature prompted her presentation to the ED. She also reports hi story of hemorrhoids which she felt a pop in the recent days. But not providing any discomfort not associated stool or melanotic diarrhea. She reports that she is scheduled to see a GI doctor next week. She denies any dysuria or vaginal discharge. On arrival to the ER she knows the chest pain since 7/10 in intensity and abdominal pain as 4/10 intensity chest pain is aggravated by movement or deep is duration. Abdominal pain is aggravated by pressure to the site. She denies any suprapubic tenderness at this time. Fever nausea or vomiting. She was now she has this chronic back pain which has been aggravated with the onset of this abdominal pain and chest Patient underwent stress test which was negative. GI did see the patient and recommended that the patient follow with her planned GI as the etiology is unclear etiology for the pain, may be related to IBS, visceral hypersensitivity, musculoskeletal, vs referred pain from lower back pain. Pleuritic chest pain B/L lower abdominal pain-possible IBS Acute chronic lower back pain from prior slip and fall accident in 2008- Known slip disc Obesity Ex-smoker quit 1 year ago Elevated D.dimer Hemorrhiods Disposition: TO HOME OR SELFCARE Time spent for discharge: 35 MINS Core Measure Documentation - Palliative Care Palliative Care/ Comfort Measures: Not Applicable - Core Measures Any of the following diagnoses?: none Exam - Physical Exam Narrative exam: VITAL SIGNS: Reviewed. GENERAL: The patient appeared well nourished and normally developed. Vital signs as documented. HEAD: No signs of head trauma. EYES: Pupils are equal. Extraocular motions intact. EARS: Hearing grossly intact. MOUTH: Oropharynx is normal. NECK: No adenopathy, no JVD. CHEST: Chest with clear breath sounds bilaterally. No wheezes, rales, or rhonchi. CARDIAC: Regular rate and rhythm. S1 and S2, without murmurs, gallops, or rubs. VASCULAR: No Edema. Peripheral pulses normal and equal in all extremities. ABDOMEN: Soft, NT No sign of distention. No rebound or guarding, and no masses palpated. Bowel Sounds normal. MUSCULOSKELETAL: Good range of motion of all major joints. Extremities without clubbing, cyanosis or edema. NEUROLOGIC EXAM: Alert and oriented x 3. No focal sensory or strength deficits. Speech normal. Follows commands. PSYCHIATRIC: Mood normal. SKIN: No rash or lesions. - Constitutional Vitals: Temp Pulse Resp BP Pulse Ox 98.2 F 72 20 104/56 93 10/16/18 08:09 10/16/18 10:00 10/16/18 08:09 10/16/18 08:09 10/16/18 08:09 Plan Activity: advance as tolerated, fall precautions Diet: low fat Special Instructions: record daily BP diary Additional Instructions: FOLLOW WITH OUTPATIENT GI as planned Follow up with: PRIMARY CARE, [Primary Care Provider] - 7 Days Forms: Discharge Signature Page Prescriptions: traMADol [Ultram] 50 mg PO Q6HR PRN #14 tablet PRN Reason: Pain
== END 2018-10-16 14:41 | disposition home or self-care (01) | DRG 392 ==
LOC: ED 16:57 → 4A 10-15 05:55
PROVIDERS: ADMIT Internal Medicine; ATTEND Internal Medicine
DX: K58.9 Irritable bowel syndrome, unspecified (principal); G89.29 Other chronic pain; M54.5 Low back pain; R07.81 Pleurodynia; E66.9 Obesity, unspecified; K64.9 Unspecified hemorrhoids; Z87.891 Personal history of nicotine dependence; Z68.31 Body mass index [BMI] 31.0-31.9, adult
CPT/HCPCS: 36415; 71045; 71275; 74177; 78452; 80048; 80053; 81001; 81025; 82140; 82550; 82553; 83690; 84484; 85025; 85379; 93005; 93010; 93017; 96374; G0378; A9502; J1170; J1644; J2270; J2785; J7030; Q9967